=== PATIENT | male | born 1965 | race Two or more races ===

== ENCOUNTER 2019-02-27 18:00 | Emergency (ER) | payer SELFPAY ==
[~2019-02-27] VITALS: Ht 170.2 cm; Wt 117.9 kg
--- NOTE | 2019-02-27 18:37 | NUR ---
C/O LOWER ABD PAIN RADIATES TO GROIN AND TESTICLE, LEFT SIDE WORSE THAN RIGHT. SOME DIFFICULTY URINATING. PAIN IS INTERMITTENT AND 3/10. NO OTHER COMPLAINTS AT THIS TIME. MADE COMFORTABLE AND READY FOR EVAL.
--- NOTE | 2019-02-27 18:50 | NUR ---
CARD DEALER AT BEDSIDE
[2019-02-27 19:45] LABS: APPEARANCE,URINE Clear (CLEAR); BILIRUBIN,URINE Negative (NEGATIVE); BLOOD, URINE Negative Ery/uL (NEGATIVE); COLOR,URINE Yellow (YELLOW); KETONES,URINE Negative (NEGATIVE); LEUKOCYTE ESTERASE ,URINE Negative (NEGATIVE); NITRITE, URINE Negative (NEGATIVE); PH,URINE 5.5 (5.0-8.0); PROTEIN,URINE Negative (NEGATIVE); UGLUCOSE Negative (NEGATIVE); UROBILINOGEN,URINE 0.2 EU/dL (0.2)
--- NOTE | 2019-02-27 20:04 | NUR ---
Patient discharged to home in stable condition. Written and verbal after care instructions given. Patient verbalizes understanding of instruction.
[2019-02-27 20:09] VITALS: BP 128/74
== END 2019-02-27 20:05 | disposition home or self-care (01) ==
LOC: ER 18:00
DX: K40.90 Unilateral inguinal hernia, without obstruction or gangrene, not specified as recurrent (principal); M10.9 Gout, unspecified; E03.9 Hypothyroidism, unspecified
CPT/HCPCS: 76870-TC; 81000-TC; 87086-TC